=== PATIENT | male | born 1955 | race Caucasian/White ===

== ENCOUNTER 2016-11-28 08:54 | Day surgery (SDC) | payer BC ==
--- NOTE | 2016-11-28 07:46 | HP ---
Chief Complaint - Chief Complaint Date of Service: 11/28/16 Chief Complaint: Shoulder pain History of Present Illness: Mr. Ellsworth presents for R shoulder arthroscopy with rotator cuff repair, biceps tenodesis, and distal clavicle resection. He denies any changes in his health since his last visit. - Patient's Past Medical History Patient History - Medical: Diabetes Type 2 Patient History - Cardiac/Respiratory: Hypertension Patient History - Surgical Procedures: Back Surgery, Other Patient History - Other: None - Family History Mother Family History - Medical: Osteoarthritis Father Family History - Medical: Osteoarthritis Family History - Cardiac/Respiratory: Hypertension, Hyperlipidemia - Social History Living Situations: spouse Psych History: No pertinent hx Alcohol Use: none Drug Use: none - Immunizations Immunizations Up to Date: Yes Hx Pneumococcal Vaccination: No History of Influenza Vaccine: Yes Review Of Systems (GEN) - Review of Systems Generalized/Overall Review: Present: No Symptoms Reported Misc: All systems neg except as marked Immunizations: IMMUNIZATION HX Immunizations Up to Date Yes History of Influenza Vaccine Yes Hx Pneumococcal Vaccination No Allergies/Adverse Reactions: Allergies Allergy/AdvReac Type Severity Reaction Status Date / Time No Known Allergies Allergy Verified 12/11/12 11:21 Home Medications: HOME MEDICATIONS Lisinopril 40 mg PO DAILY 03/25/13 [Last Taken 12/13/14 08:00] Multivitamins [Multivitamin Shirley] 1 cap PO DAILY 03/25/13 [Last Taken 08:30] Vitamin B Complex [B Complex] 1 each PO DAILY 03/25/13 [Last Taken 12/13/14 08: 00] metFORMIN HCL [Metformin HCl] 1,000 mg PO BID 03/25/13 [Last Taken 12/13/14 13: 00] Gabapentin [Neurontin] 300 mg PO TID 12/14/14 [Last Taken 12/13/14 20:00] Aspirin [Aspirin Enteric Coated] 81 mg PO DAILY 11/23/16 [Last Taken Unknown] Blood-Glucose Meter [Blood Glucose Monitoring] 1 each MC DAILY 11/23/16 [Last Taken Unknown] Metoprolol Succinate [Toprol Xl] 50 mg PO DAILY 11/23/16 [Last Taken Unknown] traMADol HCL [Ultram] 50 - 100 mg PO Q6H PRN 11/23/16 [Last Taken Unknown] Exam - Exam Vital Signs: Vital Signs - Last Taken Temp 37 C 12/14/14 10:51 Pulse Resp BP 145/68 12/14/14 10:51 Pulse Ox Comprehensive Narrative: 11/28/16 07:43 Gen: A&Ox3, NAD Resp: breathing nonlabored, lungs clear to auscultation CV: RRR, no murmurs, rubs, or gallops MSK: TTP over AC joint and biceps tendon, FF 140 deg, abduction 120 deg, ext rotation 90 deg, int rotation 60 deg, Vinicio's test positive, Speed's positive, Neer's and Thomas positive, supraspinatus strength 4/5, SILT, distal cap refill brisk Assessment/Plan - Narrative Narrative: Mr. Ellsworth returns for follow up of bilateral shoulder pain, R>L. He has a full thickness tear of the anterior half of the supraspinatus with retraction as well as significant AC joint arthritis with a large inferior osteophyte complex impinging on the rotator cuff. I counseled him on options including corticosteroid injection and PT vs R shoulder arthroscopy with rotator cuff repair, distal clavicle resection, and possible biceps tenotomy. He has had pain in this shoulder for over a year and it is getting worse. He may be losing his current insurance at the end of the year and would like to get something done before this. He certainly meets operative indications based on his tear. I counseled him on the risks and benefits of surgery today including , but not limited to, infection, bleeding, failure of repair/re-tear, stiffness , persistent pain, and risks with anesthesia. After discussion of the surgery and the expected postoperative rehabilitation, he wishes to proceed with surgery. - Assessment/Plan (1) Rotator cuff tear, right Problem: Acute
[~2016-11-28 08:54] MED LIST: RINGER'S SOLUTION,LACTATED 1,000 ML IV PRN; ceFAZolin SODIUM 1 GM VIAL IV PRN
[2016-11-28] MEDS ORDERED: RINGER'S SOLUTION,LACTATED 1,000 ML IV ONE (12:25)
--- NOTE | 2016-11-28 14:00 | OR ---
Operative Report - Dictated Report Narrative: Date: 11/28/2016 Physician: Philip Holder M.D. Physician Compensation Analyst: Abraham Cuellar PA-C Preoperative diagnosis: Right Shoulder supraspinatus tear, superior labral anterior to posterior lesion, acromioclavicular arthritis Postoperative diagnosis: Right Shoulder supraspinatus tear, superior labral anterior posterior lesion, acromioclavicular arthritis Procedure: Right shoulder arthroscopy with knee open rotator cuff repair, biceps tenotomy, subacromial decompression, open distal clavicle resection Anesthesia: General plus regional Complications: None Estimated blood loss: Minimal Specimens: Bone for disposal Retained implants: [employer] all suture anchor 1 Drains: None Indications: Tevin Is a 61 year-old male who has been followed in my clinic with complaints of shoulder pain consistent with rotator cuff tear, superior labral tear, and AC joint arthritis. Physical exam and diagnostic imaging were consistent with his complaints and concern for full-thickness retracted tear of the supraspinatus, degenerative superior labral tear, and acromioclavicular arthritis with large inferior osteophyte complex. Conservative measures have failed including, but not limited to, passage of time, activity modification, medications, physical therapy/home exercise program, or injections. The risks, benefits, and alternatives were discussed in clinic. The risks being , bleeding, infection, blood clots, nerve, tendon, ligament, blood vessel injury, persistent pain, arthrosis, stiffness, need for prolonged therapy, need for additional procedures, and persistent symptoms. Consent was obtained in the clinic. Procedure: After marking the correct extremity in the preoperative holding area, a timeout was performed in the operating room. IV antibiotics consisting of 2 g of Ancef were administered prior to the procedure. A general followed by regional anesthetic was induced by the nurse cardiac exercise specialist. This was in the supine position, then the patient was transitioned to a beachchair position with all bony prominences well-padded, head in neutral, the nonoperative arm well supported, and the legs padded with SCDs in place. The operative shoulder was then prepped and draped in a standard sterile fashion. Preoperatively the shoulder had full passive range of motion. After marking out the bony landmarks , saline was infused into the joint through a posterior lateral portal site. A marlyn incision was made, and the blunt trocar and cannula was introduced into the shoulder joint. An anterior working portal was placed in the rotator cuff interval using a spinal needle for guidance. Upon initial evaluation, the biceps tendon showed no tearing and no Aneta synovitis. The middle glenohumeral ligament was intact. Subscapularis tendon was intact. The glenoid showed grade 1 chondral changes. The humeral head articular surface showed 1 chondral changes. The anterior labrum was intact. The superior labrum demonstrated a type I tear. The pouch was of normal caliber with no loose bodies. The posterior labrum was intact with mild fraying. The supraspinatus tendon demonstrated a full-thickness crescent shaped tear with approximately 2 cm of retraction. The infraspinatus tendon was intact. At this point we elected to perform a biceps tenotomy given the superior labral lesion and the need for a rotator cuff repair. This was performed with arthroscopic scissors and a 4.0 mm shaver was used to debride the biceps anchor. The articular surface of the rotator cuff tear was then debrided with the shaver. Attention was then turned to the subacromial space. Subacromial bursectomy was performed utilizing the prior portals. The coracoacromial ligament was frayed but intact. The bursal side of the rotator cuff demonstrated the full thickness crescentic tear of the supraspinatus. The acromial arch demonstrated normal morphology. Significant inferior osteophyte of the acromion was noted at the AC joint. An arthroscopic bur was used to debride the inferior osteophyte and perform a subacromial decompression. Based on the arthroscopic findings, as well as exam and radiographic findings, it was then elected to proceed with a mini open rotator cuff repair. A longitudinal incision centered over the previously identified rotator cuff tear was made just off the edge of the acromion. This was approximately 4 centimeters in length. The deltoid fascia was split sharply in line with its fibers, and blunt dissection was carried through the deltoid muscle. Any remaining subacromial bursal tissue was debrided in order to expose the underlying rotator cuff tear. We then visualized the crescent tear of the supraspinatus and decided to proceed with a margin convergence repair. The tuberosity was debrided of its soft tissues producing a bleeding bed for the tendon to be secured to. Two free 2-0 FiberWire sutures were passed through the anterior and posterior leaflets of the crescent tear with arthroscopic suture passer. A 2.7 mm all suture anchor was placed just off the articular surface of the humeral head. The sutures were then passed through the anterior and posterior leaflets 2 sutures through each leaflet and then tied down in a horizontal mattress fashion. This gave good overall compression to the rotator cuff at the insertion site and brought the crescentic tear together nicely. The shoulder was placed through a range of motion and had no lift off of the repair site as well as no crepitance or signs of impingement. Full passive range of motion was able to be obtained. Once it was felt that the rotator cuff was adequately repaired, the wounds were thoroughly irrigated. Attention was then turned to the distal clavicle. A longitudinal incision was made over the acromioclavicular joint. This was sharply dissected down to the chromic clavicular capsule. Cautery was utilized for hemostasis. A longitudinal capsulotomy was made and elevated off the anterior posterior aspects of the distal clavicle. There is notable hypertrophic bone and loss of joint space between the acromion and clavicle. Protecting the surrounding soft tissues, an oscillating saw was utilized in order to resect approximately 7-10 mm of bone from the distal clavicle. The remaining clavicle was stable after removing this. The shoulder was taken through a range of motion and showed no remaining impingement between the acromion and the clavicle. Wounds were then thoroughly irrigated. The capsule was closed with interrupted 0 Vicryl to subcutaneous tissue with 3-0 Vicryl. Skin was closed with 4-0 nylon. 0 Vicryl was utilized in order to repair the deltoid fascia. 3-0 Vicryl was placed in the subcutaneous tissue. The rotator cuff incision as well as the portal sites were closed with interrupted nylon. Dressings consisting of Xeroform, 4 x 4, ABD, soft roll, and tape were applied. All sponge, needle, blade, and instrument counts were correct prior to closing the wounds. The patient was awoken and transferred to the postanesthesia care unit in stable condition.
--- NOTE | 2016-11-28 14:07 | OR ---
Anesthesia Procedure Note - Anesthesia Procedure Note Date of Service: 11/28/16 Narrative: Vital Signs - Last Taken Temp 36.1 C L 11/28/16 09:25 Pulse 50 L 11/28/16 09:25 Resp 16 11/28/16 09:25 BP 145/84 11/28/16 09:25 Pulse Ox 98 11/28/16 09:25 O2 Oxygen Delivery Method Room Air 11/28/16 14:05 ANESTHESIA PROCEDURE NOTE Date of Procedure: 11/28/2016 Time of procedure: 11:10 AM. Performed by: RAVIN Medrano CRNA, MSN Regulatory Affairs Associate: Tatiana Olvera RN. Preprocedure diagnosis: Post shoulder surgery pain relief. Post procedure diagnosis: Same. Procedure: Right Interscalene nerve block. Indications: Post right shoulder surgery pain relief. Findings: See below. Details of the procedure: The patient was brought to OR #2 and placed in semi- Fowlers position. The patient was prepped with chlorhexidine and using ultrasound guidance the right interscalene segment of the brachial plexus was identified and lidocaine 1% was infiltrated to the skin of the intended injection site. Under ultrasound guidance the interscalene nerve bundles were approached until a shoulder/arm response was identified on nerve stimulator. Once the stimulator response was effective at less than 0.5 mV and greater than 0.3 mV the femoral nerve was surrounded with 30 mL bupivacaine 0.5% with 1-200, 000 epinephrine. Please see radiology/ultrasound report for details and images of the procedure. EBL: 0 Fluids: N/A. Specimen: N/A. Post procedure condition: The patient tolerated the procedure well. No complications were noted. Thank you for this consultation. Ryley Sewell CRNA, ARNP, MSN
[2016-11-28 15:44] VITALS: BP 119/62
== END 2016-11-28 08:55 | disposition home or self-care (01) ==
LOC: AMB 08:54
PROVIDERS: ATTEND Orthopaedic Surgery
PROC: 0LQ10ZZ Repair Right Shoulder Tendon, Open Approach (ICD-10-PCS; 2016-11-28)
PROC: 0PB90ZZ Excision of Right Clavicle, Open Approach (ICD-10-PCS; 2016-11-28)
PROC: 3E0T3BZ Introduction of Anesthetic Agent into Peripheral Nerves and Plexi, Percutaneous Approach (ICD-10-PCS; 2016-11-28)
PROC: 0RBJ4ZZ Excision of Right Shoulder Joint, Percutaneous Endoscopic Approach (ICD-10-PCS; principal; 2016-11-28 12:15)
DX: M75.101 Unspecified rotator cuff tear or rupture of right shoulder, not specified as traumatic (principal); S43.431A Superior glenoid labrum lesion of right shoulder, initial encounter; M13.811 Other specified arthritis, right shoulder; I10 Essential (primary) hypertension; E11.9 Type 2 diabetes mellitus without complications; Z68.29 Body mass index [BMI] 29.0-29.9, adult